=== PATIENT | female | born 1960 | race Caucasian/White ===

== ENCOUNTER 2021-09-03 16:06 | Outpatient (CLI) | payer OTHER, SELFPAY ==
--- NOTE | ~2021-09-03 | CT_ITS ---
EXAMINATION: CT diagnostic chest wo con DATE: 09/03/2021 16:29 INDICATION: Hyponatremia TECHNIQUE: Computed tomography (CT) of the chest was performed without intravenous contrast. Addition al 3D reconstructions utilizing coronal maximum intensity projection (MIP) were performed. Automated exposure control and iterative reconstruction technique were employed. The dose-length product was 14 6.30 mGy-cm. COMPARISON: 01/24/2019 FINDINGS: Mild atelectasis in the lingula, right middle lobe and posterior segment of the right upper lobe. Clu ster of small calcified nodules in the perihilar right upper lobe along with calcified mediastinal an d right hilar lymph nodes consistent with old granulomatous disease. Pneumonia, pulmonary edema or ot her pulmonary infiltrates. No pleural effusion. Heart size is normal. Atherosclerotic coronary artery calcifications. Thoracic aorta is normal in caliber. No pathologically enlarged thoracic lymphadenop athy. Small sliding-type hiatal hernia. Chronic L1 burst fracture with L1 laminectomy for decompressi on and spanned by a posterior spinal fusion with bilateral vertical rods and pedicle screws at T12 an d L1. IMPRESSION: 1. No acute cardiopulmonary disease, suspicious pulmonary nodules or pathologically enlarged thoracic lymphadenopathy. 2. Small sliding-type hiatal hernia. Reviewed, dictated and finalized at location A. AL CYTOLOGIST IMPRESSION: 1. No acute cardiopulmonary disease, suspicious pulmonary nodules or pathologic ally enlarged thoracic lymphadenopathy. 2. Small sliding-type hiatal hernia.
== END 2021-09-03 16:07 | disposition home or self-care (01) ==
LOC: CHSIMG 16:09
PROVIDERS: PCP Internal Medicine; Visit Provider Internal Medicine Nephrology
DX: E87.1 Hypo-osmolality and hyponatremia (principal)
CPT/HCPCS: 71250

== ENCOUNTER 2022-10-06 12:36 | Outpatient (CLI) | payer OTHER, SELFPAY ==
--- NOTE | ~2022-10-06 | XR_ITS ---
Thoracic spine: Clinical Indication: Back pain AP and lateral views were performed. Minimal anterior wedging deformity of T12 noted. Vertebral alignment is unremarkable otherwise. The i ntervertebral disc spaces appear normal. Paravertebral soft tissues appear normal. Impression: Minimal anterior wedging deformity of T12. Reviewed, dictated and finalized at [facility]. RVISOR CONCRETE STONE FINISHING Impression: Minimal anterior wedging deformity of T12.
--- NOTE | ~2022-10-06 | US_ITS ---
EXAMINATION: US arterial ankle brachial ind DATE: 10/06/2022 13:51 INDICATION: Peripheral arterial occlusive disease TECHNIQUE: Segmental pressures and plethysmographic and Doppler waveforms of the brachial and lower e xtremity arteries were obtained. COMPARISON: None. FINDINGS: Right and left brachial artery pressures of 131 mm Hg and 148 mm Hg, respectively, are concordant (no rmal difference <= 30 mmHg). The right ankle-brachial index (NOY) is 0.57 (normal >= 0.9-1.0). The right great toe-brachial index (TBI) is 0.46 (normal >= 0.65). Arterial Doppler waveforms are biphasic with brisk systolic upstrokes at in the right common femoral, superficial femoral, popliteal and dorsalis pedis arteries. No evide nt flow in the right posterior cerebral artery which may be occluded. The left NOY is 0.53. The left TBI is 0.32. Arterial Doppler waveforms are biphasic with brisk systol ic upstrokes at both left common femoral, superficial femoral, popliteal and dorsalis pedis arteries. No evident flow in the left posterior cerebral artery which may be occluded. IMPRESSION: 1. Arterial occlusive disease to bilateral lower limbs with moderately decreased bilateral ABIs and o cclusion of the bilateral posterior tibial arteries. Reviewed, dictated and finalized at location B. HETIC FILAMENT SPINNER IMPRESSION: 1. Arterial occlusive disease to bilateral lower limbs with moderately decrease d bilateral ABIs and occlusion of the bilateral posterior tibial arteries.
--- NOTE | ~2022-10-06 | XR_ITS ---
Clinical Indication: Back pain PA and lateral views of the chest: Comparison: None Findings: The lungs are clear, without evidence of focal consolidation or pleural effusion. Cardiome diastinal silhouette is within normal limits. Compression fracture what is probably L1 noted, hesham webster posterior fixation hardware. Impression: Clear lungs. Compression fracture probably of L1, with surrounding posterior fixation hardware. Reviewed, dictated and finalized at location . EAR TEST TECHNICIAN Impression: Clear lungs. Compression fracture probably of L1, with surrounding posterior fixation donte aly
--- NOTE | ~2022-10-06 | XR_ITS ---
Lumbosacral Spine: AP and lateral views Clinical History: Pain Findings: Moderate compression fracture of L2 present. Posterior fixation hardware extends from L1 to L3. 5 mm retrolisthesis of L3 over L4 noted. Facet joint degenerative changes are present throughout the lumbar spine. The sacroiliac joints are normally outlined. Impression: Moderate compression fracture of L2, surrounding posterior fixation hardware. 5 mm retrolisthesis of L3 over L4. Facet joint degenerative changes, as detailed above. Reviewed, dictated and finalized at location M. ET DEVELOPMENT ANALYST Impression: Moderate compression fracture of L2, surrounding posterior fixation hardware. 5 mm retrolisthesis of L3 over L4. Facet joint degenerative changes, as detailed above.
== END 2022-10-06 12:37 | disposition home or self-care (01) ==
LOC: CHSIMG 12:39
PROVIDERS: PCP Internal Medicine; Visit Provider Internal Medicine
DX: I73.9 Peripheral vascular disease, unspecified (principal); M54.50 Low back pain, unspecified; M48.54XA Collapsed vertebra, not elsewhere classified, thoracic region, initial encounter for fracture; M48.56XA Collapsed vertebra, not elsewhere classified, lumbar region, initial encounter for fracture; M43.16 Spondylolisthesis, lumbar region; I70.203 Unspecified atherosclerosis of native arteries of extremities, bilateral legs
CPT/HCPCS: 71046; 72072; 72100; 93922

== ENCOUNTER 2022-10-20 08:35 | Outpatient (CLI) | payer OTHER, SELFPAY ==
--- NOTE | ~2022-10-20 | CT_ITS ---
EXAMINATION: CTA abd aorta runoff DATE: 10/20/2022 10:06 INDICATION: Peripheral arterial disease. TECHNIQUE: Computed tomographic angiography (CTA) of the abdominal, pelvis, and both lower extremitie s was performed with 150 mL Omnipaque-350 intravenous contrast. Automated exposure control and iterat yessy reconstruction technique were employed. The dose-length product was 591.52 mGy-cm. Maximum intens ity projection 3D-reconstructions of the arteries were created by the technologist on a separate work station. COMPARISON: None. FINDINGS: ABDOMINAL AORTA AND ITS BRANCHES: There is no abdominal aortic aneurysm. There is no significant stenosis of abdominal aorta. There is no significant stenosis of celiac axis. There is moderate stenosis of superior mesenteric artery. The re is no significant stenosis of the renal arteries. There is moderate stenosis of origin of inferior mesenteric artery. PELVIC VASCULATURE: There is no significant stenosis of the common iliac arteries, external iliac arteries, or internal i liac arteries. RIGHT LOWER EXTREMITY VASCULATURE: There is no significant stenosis of right common femoral artery or profunda femoris. There is total o cclusion of right superficial femoral artery throughout. There is reconstitution of flow in above-kne e popliteal artery. There is no significant stenosis of tibioperoneal trunk, anterior tibial artery, or peroneal artery. There is total occlusion of distal posterior tibial artery. LEFT LOWER EXTREMITY VASCULATURE: There is no significant stenosis of common femoral artery or profunda femoral artery. There is total occlusion of superficial femoral artery throughout. There is reconstitution of flow in above-knee pop liteal artery. There is no significant stenosis of tibioperoneal trunk, peroneal artery, or anterior tibial artery. There is total occlusion of mid posterior tibial artery. ADDITIONAL FINDINGS: The visualized portions of the lung bases demonstrate mild atelectasis. No pleural effusion. The hear t size is normal. No pericardial effusion. There is a small sliding hiatal hernia. The liver, spleen, gallbladder, pancreas, adrenal glands, and kidneys are normal. There is diverticulosis of the colon without evidence of diverticulitis. There are no dilated loops of bowel. The appendix is normal. Ther e are no pathologically enlarged lymph nodes. There is no free intraperitoneal fluid. There is customer marketing intern al fixation of left first metatarsal and left first, third, and fourth proximal phalanges. There are changes of posterior fusion procedure from L1 to L3. There is a chronic burst fracture of L2. There i s chronic anterior wedging of T10 and T11 vertebral bodies. IMPRESSION: 1. Moderate stenosis of superior mesenteric artery and inferior mesenteric artery. No significant st enosis of celiac axis. 2. Total occlusion of right superficial femoral artery with reconstitution of flow in above knee popl iteal artery. 3. Total occlusion of distal right posterior tibial artery. Two-vessel runoff on the right. 4. Total occlusion of left superficial femoral artery with reconstitution of flow and above-knee popl iteal artery. 5. Total occlusion of mid left posterior tibial artery. Two-vessel runoff on the left. Reviewed, dictated and finalized at location A. CTOR ACUTE IMPRESSION: 1. Moderate stenosis of superior mesenteric artery and inferior mesenteric art samantha. No significant stenosis of celiac axis. 2. Total occlusion of right superficial femoral artery with reconstitution of f low in above knee popliteal artery. 3. Total occlusion of distal right posterior tibial artery. Two-vessel runoff o n the right. 4. Total occlusion of left superficial femoral artery with reconstitution of fl ow and above-knee poplitea
--- NOTE | ~2022-10-20 | CT_ITS ---
EXAMINATION:CT lung screening DATE: 10/20/2022 10:05 INDICATION: Tobacco dependence. Current smoker. TECHNIQUE: Computed tomography (CT) of the chest was performed without intravenous contrast. Automate d exposure control and iterative reconstruction technique were employed. The dose-length product (DLP ) was 57.62 mGy-cm. COMPARISON: Chest CT 09/03/2021 FINDINGS: Calcified right lung nodules and calcified right hilar and mediastinal lymph nodes are cons istent with old granulomatous disease. There is mild atelectasis bilaterally. No pleural effusion. Th e heart size is normal. There are coronary artery calcifications. No pericardial effusion. There is m ild chronic anterior wedging of multiple thoracic vertebral bodies. There are changes of posterior fu marylou procedure from T12 to the lumbar spine. There is chronic burst fracture of L1. IMPRESSION: 1. Lung-RADS category 2: Benign appearance or behavior. Continue annual screening with noncontrast lo w-dose chest CT in 12 months. Reviewed, dictated and finalized at location A. TS OFFICER IMPRESSION: 1. Lung-RADS category 2: Benign appearance or behavior. Continue annual screeni ng with noncontrast low-dose chest CT in 12 months.
--- NOTE | ~2022-10-20 | CT_ITS ---
Noncontrast CT scan of the thoracic and lumbar spine CLINICAL HISTORY: Lower extremity numbness and weakness TECHNIQUE: Axial noncontrast imaging of the thoracic and lumbar spine was performed. Sagittal and cor onal reformatted images were constructed. Dose reduction technique was used on this scan by utilizing automated exposure control and iterative reconstruction technique. FINDINGS: Thoracic spine findings: There is no fracture or subluxation of the thoracic spine. Thoracic vertebra l bodies maintain normal height and alignment. There is minimal degenerative disc change at T11-T12 a nd T12-L1. There is mild reactive sclerotic change at the inferior aspect of T12 due to underlying de generative disc disease. No definite disc bulge or herniation seen at any thoracic level. No definite spinal canal stenosis or cord compression in the thoracic spine. There is probable right neural foraminal narrowing at T9-T10 , mild bony spurring in this region. Paravertebral soft tissues are unremarkable. Lumbar spine findings: There is a chronic, moderate compression fracture deformity at L2, with surrou nding posterior fixation hardware extending from L1 to L3, with bilateral rods and transpedicular scr ews present. There is mild retropulsion of the superior, posterior corner of the L2 vertebral body. G rade 1 retrolisthesis of L3 over L4 noted, approximately 5 mm. At L1-L2 and L2-L3, there is no definite disc bulge or herniation. No definite spinal canal stenosis. Probable mild to moderate left neural foraminal narrowing at L2-L3. At L3-L4, there is probable disc bulge and ligamentum flavum hypertrophy. Suspected mild central santiago l stenosis/thecal sac compression. There is probable mild to moderate bilateral neural foraminal narr owing. At L4-L5, there is mild disc bulge with facet arthropathy, which result in probable mild thecal sac c ompression. Probable moderate right neural foraminal narrowing. Left neural foramen may be minimally narrowed. At L5-S1, there is minimal disc bulge. No spinal canal stenosis. There is probable mild right neural foraminal narrowing. Left neural foramen preserved. Paravertebral soft tissues are unremarkable. IMPRESSION: Chronic L2 compression fracture with surrounding posterior fixation hardware from L1 to L3. 5 mm retrolisthesis of L3 over L4. Mild degenerative spondylosis in the lumbar spine, as detailed above. Probable mild thecal sac compre ssion at L4-L5. Scattered areas of neural foraminal narrowing in the lumbar spine, as detailed above. Suspected right neural foraminal narrowing at T9-T10. Reviewed, dictated and finalized at location M. TENANT SHIFT SUPERVISOR IMPRESSION: Chronic L2 compression fracture with surrounding posterior fixation hardware fr om L1 to L3. 5 mm retrolisthesis of L3 over L4. Mild degenerative spondylosis in the lumbar spine, as detailed above. Probable mild thecal sac compression at L4-L5. Scattered areas of neural foraminal narro wing in the lumbar spine, as detailed above. Suspected right neural foraminal narrowing at T9-T10.
[2022-10-20 09:07] LABS: Estimated Glomerular Filt Rate > 60
== END 2022-10-20 08:36 | disposition home or self-care (01) ==
LOC: CHSIMG 08:37
PROVIDERS: PCP Internal Medicine; Visit Provider Internal Medicine
DX: I73.9 Peripheral vascular disease, unspecified (principal); R53.1 Weakness; R20.0 Anesthesia of skin; I77.1 Stricture of artery; Z12.2 Encounter for screening for malignant neoplasm of respiratory organs; Z87.891 Personal history of nicotine dependence; M48.56XA Collapsed vertebra, not elsewhere classified, lumbar region, initial encounter for fracture; M43.16 Spondylolisthesis, lumbar region
CPT/HCPCS: 71271; 72128; 72131; 75635; Q9967

== ENCOUNTER 2023-05-01 08:22 | Day surgery (SDC) | payer OTHER, SELFPAY ==
[2023-03-17 10:24] VITALS: BMI 23.6
[2023-04-14 13:44] VITALS: BMI 23.8
--- NOTE | 2023-04-28 14:59 | WPDANESEPPF ---
Anes - Initial Pre Proc Eval Procedure: Operation Date: 05/01/23 10:30 Proposed Procedures p Screening Colonoscopy - Prashanth Delgadillo MD Date/Time: 04/28/23 14:59 Surgeon: Prashanth Delgadillo MD Pre Op Diagnosis: Neoplasm Screening Patient Data Age: 62 Gender: F Height: 1.56 m Weight: 58 kg Allergies Allergy/AdvReac Type Severity Reaction Status Date / Time amoxicillin Allergy Intermediate Rash Verified 05/01/23 09:21 bupropion Allergy Intermediate Hives Verified 05/01/23 09:21 Home Medications Medication Instructions Recorded Confirmed Type sodium,potassium,mag sulfates 17.5 See Rx Instructions PO .COMPLEX 03/17/23 05/01/23 Rx gram-3.13 gram-1.6 gram oral soln #354 mL (Suprep Bowel Prep Kit) amlodipine 5 mg tablet 10 mg PO DAILY 04/14/23 05/01/23 History aspirin 81 mg tablet,delayed 81 mg PO DAILY 04/14/23 05/01/23 History release (Adult Low Dose Aspirin) atorvastatin 10 mg tablet 10 mg PO DAILY 04/14/23 05/01/23 History oneil pod extract-green tea extract 400 tablet PO DAILY 04/14/23 05/01/23 History 400 mg-400 mg tablet biotin 10,000 mcg chewable tablet 10,000 mcg PO DAILY 04/14/23 05/01/23 History (Hair, Skin and Nails (biotin)) buspirone 15 mg tablet 15 mg PO DAILY 04/14/23 05/01/23 History cilostazol 50 mg tablet 50 mg PO DAILY 04/14/23 04/14/23 History lisinopril 40 mg tablet 40 mg PO DAILY 04/14/23 05/01/23 History mirtazapine 15 mg tablet 15 mg PO DAILY 04/14/23 05/01/23 History multivitamin with minerals-folic 1 tablet PO DAILY 04/14/23 05/01/23 History acid 0.4 mg tablet omega 2-bcx-hlr-fish oil 1,200 mg 1 cap PO DAILY 04/14/23 05/01/23 History (144 mg-216 mg) capsule (Fish Oil) Patient hx anesthesia problems: none Family hx anesthesia problems: none Results Review: All pre-operative results and documents have been reviewed as part of the pre-operative evaluation. [facility] Past Medical History Medical History Anxiety Depression ETOH abuse HTN (hypertension) Hyperlipidemia Lupus (systemic lupus erythematosus) Osteoarthritis PVD (peripheral vascular disease) Smoker Social History Social History Smoking packs per day: 0.5 Smoking cigarettes per day: 10.0 Years smoked: 30 Smoking pack-years: 15.00 Smoking status: Current every day smoker Tobacco type: cigarettes Alcohol intake: current Drinks per week: 28 Alcohol use details: 4 BEERS EVERY EVENING Substance use: never Substance use type: does not use Living arrangements: with family Spiritual care concerns: No Anes - Eval Final PreProcedure Day of Procedure 04/28/23 14:59 Patient weight: normal Heart: regular rate and rhythm Lungs: clear to auscultation and normal air movement Airway: Mallampati scale class II Neurological: alert and oriented Last oral intake: >/= 8 hours ASA classification: III Emergent: no Anesthetic plan: proceed Anesthesia type and monitoring: general GIVS Results Review: All pre-operative results and documents have been reviewed as part of the pre-operative evaluation. Informed Consent: The patient's anesthetic plan and its attendant risks and benefits were discussed with the patient/family/POA. Questions were solicited and answers provided to the satisfaction of the patient/family/POA.
[2023-05-01 09:23] VITALS: BP 120/73; PULSE 100; RESP 14; TEMP 36.4; O2SAT 100
[2023-05-01] MEDS: LACTATED RINGERS 1,000 ML 150 ML IV CONT (09:36)
--- NOTE | 2023-05-01 09:42 | PM.HPGS ---
History of Present Illness History of Present Illness Consent: Risks, benefits, and alternatives have been discussed and questions answered. Patient agrees to proceed with procedure. Chief complaint: Neoplasm Screening Narrative: Sarah Almanzar is a 62 year old female Presents for screening colonoscopy. Patient's current weight appetite and bowel movements are normal. Patient denies abdominal pain. Patient reports bowel habits are good. She presents today for neoplasia screening. Review of Systems Review of Systems: Review of systems noncontributory. PMFSH Past Medical History Medical History Anxiety Depression ETOH abuse HTN (hypertension) Hyperlipidemia Lupus (systemic lupus erythematosus) Osteoarthritis PVD (peripheral vascular disease) Smoker Social History Social History Smoking packs per day: 0.5 Smoking cigarettes per day: 10.0 Years smoked: 30 Smoking pack-years: 15.00 Smoking status: Current every day smoker Tobacco type: cigarettes Alcohol intake: current Drinks per week: 28 Alcohol use details: 4 BEERS EVERY EVENING Substance use: never Substance use type: does not use Living arrangements: with family Spiritual care concerns: No Meds Home Medications and Allergies Home Medications Medication Instructions Recorded Confirmed Type sodium,potassium,mag sulfates 17.5 See Rx Instructions PO .COMPLEX 03/17/23 05/01/23 Rx gram-3.13 gram-1.6 gram oral soln #354 mL (Suprep Bowel Prep Kit) amlodipine 5 mg tablet 10 mg PO DAILY 04/14/23 05/01/23 History aspirin 81 mg tablet,delayed 81 mg PO DAILY 04/14/23 05/01/23 History release (Adult Low Dose Aspirin) atorvastatin 10 mg tablet 10 mg PO DAILY 04/14/23 05/01/23 History oneil pod extract-green tea extract 400 tablet PO DAILY 04/14/23 05/01/23 History 400 mg-400 mg tablet biotin 10,000 mcg chewable tablet 10,000 mcg PO DAILY 04/14/23 05/01/23 History (Hair, Skin and Nails (biotin)) buspirone 15 mg tablet 15 mg PO DAILY 04/14/23 05/01/23 History cilostazol 50 mg tablet 50 mg PO DAILY 04/14/23 04/14/23 History lisinopril 40 mg tablet 40 mg PO DAILY 04/14/23 05/01/23 History mirtazapine 15 mg tablet 15 mg PO DAILY 04/14/23 05/01/23 History multivitamin with minerals-folic 1 tablet PO DAILY 04/14/23 05/01/23 History acid 0.4 mg tablet omega 3-oho-vvg-fish oil 1,200 mg 1 cap PO DAILY 04/14/23 05/01/23 History (144 mg-216 mg) capsule (Fish Oil) Allergies Allergy/AdvReac Type Severity Reaction Status Date / Time amoxicillin Allergy Intermediate Rash Verified 05/01/23 09:21 bupropion Allergy Intermediate Hives Verified 05/01/23 09:21 Vital Signs Vital Signs - 24 hr 05/01/23 09:23 Temperature 97.5 F L Pulse Rate 100 Respiratory Rate 14 Blood Pressure 120/73 Pulse Oximetry 100 Oxygen Delivery Room Air Exam Narrative: Physical exam reveals patient to be alert. Vital signs stable. HEENT exam is unremarkable. Patient is anicteric. Lungs are clear to auscultation and percussion. Heart is without murmur or extra sounds. Abdomen bowel sounds are present soft nontender with no organomegaly. Digital external rectal exam is normal. Assessment and Plan Assessment and plan (1) Encounter for screening colonoscopy: Code(s): Z12.11 - Encounter for screening for malignant neoplasm of colon Status: Acute Assessment and Plan: Patient presents today for screening colonoscopy. She appears to be at average risk for colon polyps. Further recommendations will be given after endoscopy.
[2023-05-01 11:00] VITALS: BP 88/66; PULSE 77; RESP 16; O2SAT 100
[2023-05-01 11:09] VITALS: BP 106/61; PULSE 72; RESP 16; O2SAT 100
[2023-05-01 11:22] VITALS: BP 122/69; PULSE 72; RESP 16; O2SAT 100
--- NOTE | 2023-05-01 14:21 | WPDANESPN ---
Anes - Prog Note Post-Op Date/Time: 05/01/23 14:21 Cardiovascular status: normal Respiratory status: normal Airway patency: baseline Mental status: baseline Post-Op hydration status: normal Vital Signs: Last Vital Signs Temp 36.4 C L 05/01/23 09:23 Pulse 72 05/01/23 11:22 Resp 16 05/01/23 11:22 BP 122/69 05/01/23 11:22 Pulse Ox 100 05/01/23 11:22 O2 Del Method Room Air 05/01/23 11:22 Pain Score (VAS): 0 I/O: Intake & Output 04/30/23 05/01/23 05/01/23 23:59 07:59 15:59 Intake Total 700 Balance 700 Post-procedural complaints: none Patient Feedback: Patient satisfied with anesthetic care.
== END 2023-05-01 10:35 | disposition home or self-care (01) ==
PROVIDERS: PCP Internal Medicine; Visit Provider Internal Medicine Gastroenterology
PROC: 0DJD8ZZ Inspection of Lower Intestinal Tract, Via Natural or Artificial Opening Endoscopic (ICD-10-PCS; CPT 45378; principal; 2023-05-01 10:30)
DX: Z12.11 Encounter for screening for malignant neoplasm of colon (principal)
CPT/HCPCS: 45378

== ENCOUNTER 2023-05-24 11:39 | Outpatient (CLI) | payer OTHER, SELFPAY ==
--- NOTE | ~2023-05-24 | MM_ITS ---
EXAMINATION: MM screening [facility] BI w delvis HISTORY: Screening mammogram TECHNIQUE: Craniocaudal and mediolateral oblique 3-D tomosynthesis images were obtained and synthetic 2-D images were generated. CAD analysis was submitted and interpreted. COMPARISON: 07/26/2019, 07/19/2019, 07/18/2018 BREAST PARENCHYMAL COMPOSITION: There are scattered areas of fibroglandular density. FINDINGS: Scattered benign-appearing calcifications are present. No suspicious mass, calcification, o r architectural distortion are identified in either breast to suggest malignancy. There has been no s uspicious interval change. IMPRESSION: 1. No mammographic evidence of malignancy. 2. Recommend routine screening mammography in one year. BI-RADS Category 2: Benign finding(s). Reviewed, dictated and finalized at location A.
== END 2023-05-24 11:40 | disposition home or self-care (01) ==
LOC: CHSIMG 11:41
PROVIDERS: PCP Internal Medicine; Visit Provider Internal Medicine
DX: Z12.31 Encounter for screening mammogram for malignant neoplasm of breast (principal)
CPT/HCPCS: 77063; 77067

== ENCOUNTER 2024-05-01 12:53 | Outpatient (CLI) | payer OTHER, SELFPAY ==
--- NOTE | ~2024-05-01 | CT_ITS ---
CT Scan of the Chest without Contrast: Clinical Indication: Lung cancer screening, nicotine dependence Technique: Contiguous sections were acquired throughout the chest without intravenous contrast. Dose reduction technique was used on this scan by utilizing automated exposure control and iterative recon struction technique. The dose-length product (DLP) was 55.90 mGy-cm. COMPARISON: 10/20/2022 Findings: There is no evidence of any significant mediastinal, hilar or axillary lymphadenopathy. Small calcifi ed mediastinal and right hilar lymph nodes are present. Coronary artery calcifications are present. There is no evidence of pleural or pericardial effusion. Stable focal posterior pleural scarring. Calcified upper lobe granulomas noted. Images through the upper abdomen reveal no abnormalities. Stable compression deformity of L2. Stable minimal compression deformity of T12. Impression: Lung RADS 2: Benign appearance. 12 month follow-up screening CT advised. Reviewed, dictated and finalized at [facility]. Impression: Lung RADS 2: Benign appearance. 12 month follow-up screening CT advised.
== END 2024-05-01 12:54 | disposition home or self-care (01) ==
LOC: CHSIMG 12:54
PROVIDERS: PCP Internal Medicine; Visit Provider Internal Medicine
DX: Z12.2 Encounter for screening for malignant neoplasm of respiratory organs (principal); Z87.891 Personal history of nicotine dependence
CPT/HCPCS: 71271

== ENCOUNTER 2024-05-27 11:58 | Outpatient (CLI) | payer OTHER, SELFPAY ==
--- NOTE | ~2024-05-27 | DEXA_ITS ---
Bone Density Report Name: CARISSA GARCIA Age: 63 Sex: Female Ethnicity: White Date of : 1960 Indication: postmenopausal; screening for osteoporosis; height loss; prior fracture; Referring Provider: Diego Polk Study: Bone densitometry was performed. Exam Date: May 27, 2024 Accession number: [id number] Bone Density: Region BMD T-score Z-score Classification Femoral Neck (Left) 0.741 -1.0 0.5 Normal Total Hip (Left) 0.800 -1.2 0.0 Osteopenia Femoral Neck (Right) 0.723 -1.1 0.3 Osteopenia Total Hip (Right) 0.783 -1.3 -0.1 Osteopenia Femoral Neck Mean 0.732 -1.1 0.4 Osteopenia Total Hip Mean 0.791 -1.2 -0.1 Osteopenia World Health Organization criteria for BMD impression classify patients as: Normal (T-score at or above -1.0), Osteopenia (T-score between -1.0 and -2.5), or Osteoporosis (T-score at or below -2.5). 10-year Fracture Risk: FRAX not reported because: Prior hip or vertebral fracture Clinical Information Provided by Patient: Have had a previous hip or vertebral fracture Has had a low trauma fracture Smokes Has 3 or more alcoholic drinks per day Patient maximum height was 63.0 Menopause Age: 48 Drinks caffeinated beverages Onset of menses at age 11 Number of children 3 Impression: The patient has low bone mass, based on the Right Total Hip T-score. The patient has risk factors, including: smoking, excessive alcohol use, previous fracture. Discussion: INCREASED RISK OF FRACTURE DUE TO HISTORY OF FRACTURE. The patient's previous fracture puts the patient at high risk of a future fracture. In untreated patients, the risk of osteoporotic fracture increases approximately two-fold for each 1.0 SD decrease in T-score. Low bone density is not the only risk factor for fracture; also consider factors such as patient's age, frailty or poor health, risk of falling, risk of injury, previous osteoporotic fracture, family history of osteoporosis, cigarette smoking, low body weight, etc. Not everyone with a low trauma fracture has osteoporosis; osteomalacia and other metabolic bone disorders should also be considered. Patients who have osteoporosis should be evaluated for specific diseases and conditions (secondary causes) that may cause or contribute to bone loss and fracture risk. National Osteoporosis Foundation (NOF) recommends pharmacologic intervention for patients with a prior hip or vertebral fracture regardless of BMD T-score. The patient should follow a healthful lifestyle (good nutrition with adequate calcium and vitamin D, and appropriate weight-bearing exercise). Follow-Up: Consider a repeat BMD and Vertebral Fracture Assessment (VFA) exam in 2 years or sooner if medically necessary, to reassess this patient's status. Reported by: Dr. Tono Jeffrey on 05/27/2024 12:51:00 PM.
--- NOTE | ~2024-05-27 | MM_ITS ---
EXAMINATION: MM screening anais BI w delvis HISTORY: Screening TECHNIQUE: Craniocaudal and mediolateral oblique 3-D tomosynthesis images were obtained and synthetic 2-D images were generated. CAD analysis was submitted and interpreted. COMPARISON: Comparison to multiple prior studies sequentially, with oldest reviewed study dated 07/16. BREAST PARENCHYMAL COMPOSITION: Not dense: There are scattered areas of fibroglandular density. FINDINGS: There is no evidence of suspicious mass, calcification, or architectural distortion to sugg est malignancy in either breast. There has been no suspicious interval change. IMPRESSION: 1. No mammographic evidence of malignancy. 2. Recommend routine screening mammography in one year. BI-RADS Category 2: Benign finding(s). Reviewed, dictated and finalized at location B.
== END 2024-05-27 11:59 | disposition home or self-care (01) ==
LOC: CHSIMG 12:01
PROVIDERS: PCP Internal Medicine; Visit Provider Internal Medicine
DX: Z12.31 Encounter for screening mammogram for malignant neoplasm of breast (principal); Z78.0 Asymptomatic menopausal state; M85.89 Other specified disorders of bone density and structure, multiple sites
CPT/HCPCS: 77063; 77067; 77080

== ENCOUNTER 2025-08-12 14:15 | Outpatient (CLI) | payer OTHER, SELFPAY ==
--- NOTE | ~2025-08-12 | MM_ITS ---
EXAMINATION: MM screening [facility] BI w delvis HISTORY: Screening TECHNIQUE: Craniocaudal and mediolateral oblique 3-D tomosynthesis images were obtained and synthetic 2-D images were generated. CAD analysis was submitted and interpreted. COMPARISON: Comparison to multiple prior studies sequentially, with oldest reviewed study dated 07/26/2019. BREAST PARENCHYMAL COMPOSITION: Not dense: There are scattered areas of fibroglandular density. FINDINGS: There is no evidence of suspicious mass, calcification, or architectural distortion to suggest malignancy in either breast. There has been no suspicious interval change. IMPRESSION: 1. No mammographic evidence of malignancy. 2. Recommend routine screening mammography in one year. BI-RADS Category 1: Negative Reviewed, dictated and finalized at location B.
--- OUTSIDE RECORDS SUMMARY | 2025-08-12 16:35 | XMS_ITS | Clinical Summary ---
Author Organization [facility] Facility Address [address] [address] Care Team Providers Care Computer Network Engineer Name Role Phone Diego Polk MD Primary Care Provider [phone] Allergies Active Allergy Reactions Criticality Noted Date Comments Bupropion 04/26/2021 Penicillins 04/26/2021 Medications * This document contains information received from the source organization and may not represent a complete record from that organization. Multiple Vitamin (multivitamin) tablet Take 1 tablet by mouth 1 (one) time each day Active omega-3 (FISH OIL) 1200 MG capsule Take 360 mg by mouth 1 (one) time each day Active doxepin (SINEquan) 10 MG capsule Take 10 mg by mouth every night Active citalopram (CeleXA) 20 MG tablet Take 20 mg by mouth 1 (one) time each day Active lisinopril 40 MG tablet Take 40 mg by mouth 1 (one) time each day Active amLODIPine-ator vastatin (CADUET) 5-10 MG per tablet Take 2 tablets by mouth 1 (one) time each day Active Green Tea, Vania sinensis, (GREEN TEA EXTRACT PO) Take 315 mg by mouth daily Active Active Problems No known active problems Family History Medical History Relation Comments HIV Brother Lymphoma Brother Cancer Father's Sister Cancer Mother No Known Problems Sister Relation Status Comments Brother Alive Father Father's Sister Alive Mother Sister Alive Social History Tobacco Use Types Packs/Day Years Used Date Smoking Tobacco: Every Day Cigarettes 0.5 30 Smokeless Tobacco: Never Alcohol Use Standard Drinks/Week Comments Yes 0 (1 standard drink = 0.6 oz pur e alcohol) Comments Unknown Sex and Gender Information Value Date Recorded Sex Assigned at Not on file Legal Sex Female 12:16 PM EDT Gender Identity Not on file Sexual Orientation Not on file Last Filed Vital Signs Vital Sign Reading Time Taken Comments Blood Pressure 126/75 08/26/2021 11:39 AM COOK ROAST Pulse 87 08/26/2021 11:39 AM COOK ROAST Temperature 36.4 C (97.5 F) 08/26/2021 11:39 AM COOK ROAST Respiratory Rate - - Oxygen Saturation 99% 08/26/2021 11:39 AM COOK ROAST Inhaled Oxygen Concentration - - Weight 59.4 kg (131 lb) 08/26/2021 11:39 AM COOK ROAST Height 154.9 cm (5' 1) 08/26/2021 11:39 AM COOK ROAST Body Mass Index 24.75 08/26/2021 11:39 AM COOK ROAST Plan of Treatment Health Maintenance Due Date Last Done Comments Breast Cancer Screening 1960 Pneumococcal Vaccine: 50+ Ye ars (1 of 2 - PCV) 1979 Colorectal Cancer Screening: Annual FOBT 2009 Colorectal Cancer Screening: Colonoscopy 2009 Colorectal Cancer Screening: Sigmoidoscopy 2009 Influenza Vaccine (#1) 2025 Hepatitis B Vaccine Aged Out No longe r eligible based on patient's age to complete this topic Insurance ) Care Teams Computer Network Engineer Relationship Specialty Start Date End Date Diego Polk MD [address] [place] [address] PCP - General Internal Medicine 08/19/21
--- OUTSIDE RECORDS SUMMARY | 2025-08-12 16:35 | XMS_ITS | Clinical Summary ---
Author Organization [facility] Address [address] [place] [id number] Care Team Providers Care Photograph Retoucher Name Role Phone Diego Polk MD Primary Care Provider [phone] Allergies Active Allergy Reactions Criticality Noted Date Comments Amoxicillin Hives Medium 08/19/2019 Bupropion Hives Medium 08/19/2019 Penicillins Unknown 10/11/2023 Medications doxepin (SINEquan) 10 mg capsule Active citalopram (CeleXA) 20 mg tablet Active lisinopril (PRINIVIL,ZESTRIL ) 30 mg tablet lisinopril 30 mg tablet Active amLODIPine (NORVASC) 5 mg tablet Take 1 tablet (5 mg total) by mouth daily Active fish oil-dha-epa 1,200-144-216 mg capsule Take by mouth Active zmnoeqwq-aaj-renm ous gluconate (CENTRUM) 0.6 mg iron/mL liquid Activ e calcium carbonate-vitamin D3 600 mg(1,500mg) -500 unit capsule Take by mouth Act yessy atorvastatin (LIPITOR) 10 mg tablet Take 1 tablet (10 mg total) by mouth daily Active cilostazoL (PLETAL) 50 mg tabletIndications :Intermittent Claudication Take 1 tablet (50 mg total) by mouth 2 (two) times a day Active aspirin 81 mg enteric coated tablet Take 80 mg by mouth daily Active busPIRone (BUSPAR) 15 mg tabletIndications :Generalized Anxiety Disorder Take 1 tablet (15 mg total) by mouth 3 (three) times a day Active green tea leaf extract capsule Take 315 mg by mouth daily Active sodium chloride 1,000 mg tablet 3 Active mirtazapine (REMERON) 15 mg tablet Take 1 tablet (15 mg total) by mouth nightly at bedtime. 3 Active amlodipine-atorva statin (CADUET) 5-10 mg per tablet Take 2 tablets by mouth daily Active Active Problems Problem Noted Date Diagnosed Date Peripheral arterial disease 07/10/2024 Abnormal findings on diagnostic imaging of breas t 08/19/2019 Surgical History Surgery Date Site/Laterality Comments SPINAL FUSION 10/16/2008 - 10/15/2009 CARPAL TUNNEL RELEASE 10/16/2007 - 10/15/2008 TUBAL LIGATION 10/16/1986 - 10/15/1987 Medical History Medical History Date Comments Hypertension Depression Discoid lupus Arthritis Family History Medical History Relation Name Comments Non-Hodgkin's Lymphoma Brother Breast cancer Father's Sister Pancreatic cancer Mother Relation Name Status Comments Brother Father's Sister Mother Social History Tobacco Use Types Packs/Day Years Used Date Smoking Tobacco: Every Day Cigarettes 0.4 30 Tobacco Cessation:Ready to Q uit: Not Asked; Counseling Given: Not Answered Personal Safety Answer Date Recorded Getting School Help Needed Not on file 10/07 Comments No Sex and Gender Information Value Date Recorded Sex Assigned at Not on file Legal Sex Female 2:59 AM FITTER PLACER Gender Identity Female 10/07/2023 11:12 AM FITTER PLACER Sexual Orientation Straight 10/07/2023 11 :12 AM FITTER PLACER Obstetrics History Last Filed Vital Signs Vital Sign Reading Time Taken Comments Blood Pressure 120/72 07/08/2024 1:51 PM CDT Pulse 85 07/08/2024 1:51 PM CDT Temperature - - Respiratory Rate - - Oxygen Saturation 100% 07/08/2024 1:51 PM CDT Inhaled Oxygen Concentration - - Weight 56.7 kg (125 lb) 07/08/2024 1:51 PM CDT Height 154.9 cm (5' 1) 07/08/2024 1:51 PM CDT Body Mass Index 23.62 07/08/2024 1:51 PM CDT Plan of Treatment Health Maintenance Due Date Last Done Comments Cervical Cancer Screening 1960 Colon Cancer Screening-Colonoscopy 1960 Depression Screening 1960 Fall Risk Assessment 1960 Hepatitis C Screening 1960 Osteoporosis Screening-Bone Density Scan 1960 Hepatitis B Screening 1978 DTaP/Tdap/Td Vaccine (1 - Tdap) 01/29/1997 7 Zoster Vaccine (2 of 2) 12/30/2019 11/04/2019 Breast Cancer Screening-Mammogram 01/25/2022 021 Well Visit 65+ 2025 Covid-19 Vaccine (5 - 2024-2 6 season) 2025 08/24/2022, 08/18/2021, 11/28/2020, Additional history exists Influenza Vaccine (#1) 2025 2, 09/30/2021, 07/31/2020, Additional history exists Pneumococcal vaccine 65+ (3 of 3 - PCV20 or PCV21) 04/22/2027 04/22/2022, 05/04/2018 Procedures Procedure Name Priority Date/Time Associated Diagnosis Comments SCREENING MAMMOGRAM BILATERAL W MARIUSZ Schedule Routine, Read Routine (OP Routine) 01/25/2021 8:38 AM CDT Encounter for screening mammogram for malignant neoplasm of breast from Last 3 Months or Most Recently Relevant to Health Maintenance Results * Screening Mammogram Bilateral W Mariusz (01/25/2021 8:38 AM CDT) Anatomical Region Laterality Modality Breast Bilateral Mammography Narrative 01/26/2021 11:37 AM CDT Mammogram Technique: Bilateral Digital Breast Tomosynthesis, Bilateral C-view 2D Screening mammogram. Views obtained: bilateral craniocaudal and bilateral mediolateral oblique. Computer Aided Detection was performed. Mammogram Findings: The present examination has been compared to a prior imaging study performed at [facility] on 08/19/2019. The breasts are heterogeneously dense, which may obscure small masses. There is no suspicious abnormality in either breast. There are no significant changes from the prior study. Impression: Finding is benign. Annual screening mammography is recommended. OVERALL FINAL ASSESSMENT: BI-RADS CATEGORY 2: Benign. Procedure Note Etta Kramer MD - 01/26/2021 Mammogram Technique: Bilateral Digital Breast Tomosynthesis, Bilateral C-view 2D Screening mammogram. Views obtained: bilateral craniocaudal and bilateral mediolateral oblique. Computer Aided Detection was performed. Mammogram Findings: The present examination has been compared to a prior imaging study performed at [facility] on 08/19/2019. The breasts are heterogeneously dense, which may obscure small masses. There is no suspicious abnormality in either breast. There are no significant changes from the prior study. Impression: Finding is benign. Annual screening mammography is recommended. OVERALL FINAL ASSESSMENT: BI-RADS CATEGORY 2: Benign. us Self Screening Mammogram IMG MAMMO PROCEDURES Fi nal Result from Last 3 Months or Most Recently Relevant to Health Maintenance Insurance CHOICE PLUS CHOICE PLUS Care Teams Photograph Retoucher Relationship Specialty Start Date End Date Diego Polk MD [address] [place], [place] [id number] PCP - General Internal Medicine 07/29/19
--- OUTSIDE RECORDS SUMMARY | 2025-08-12 16:35 | XMS_ITS | Clinical Summary ---
Author Organization [facility] Address [address] [place] [address] Phone Care Team Providers Care Continuous Miner Operator Helper Name Role Phone Unavailable Primary Care Provider Unavailabl e Social History Tobacco Use Types Packs/Day Years Used Date Smoking Tobacco: Never Assessed Comments Unknown Sex and Gender Information Value Date Recorded Sex Assigned at Not on file Legal Sex Female 3:00 PM BRANCH LENDING MANAGER Gender Identity Not on file Sexual Orientation Not on file Plan of Treatment Health Maintenance Due Date Last Done Comments Hepatitis C Virus (HCV) Screening 1960 TdaP Immunization 1960 Pap Smear 1981 Cervical Cancer Screening (CCS) 1990 HPV/Cotest 1990 Cologuard 2005 Colonoscopy 2005 Colorectal Cancer Screening 2005 Immunochemical Fecal Occult Blood 2005 Pneumococcal Immunization (5 0+ years) (1 of 1 - PCV) 2010 Zoster Immunization (1 of 2) 2010 Influenza Immunization (#1) 2025 SARS-COV-2 Immunization ( - season) 2025 Respiratory Syncytial Virus (RSV) Immunization (Adult) (1 - 1-dose 75+ series) 2035 Hepatitis B Immunization Aged Out No longer eligible based on patient's age to complete this topic Human Papillomavirus (HPV) Immunization Aged Out No longer eligible b ased on patient's age to complete this topic Meningococcal Immunization (ACWY) Aged Out No longer eligible based on patient's age to complete this topic Rotavirus Immunization Aged Out No lo nger eligible based on patient's age to complete this topic
--- OUTSIDE RECORDS SUMMARY | 2025-08-12 16:35 | XMS_ITS | Encounter Summary ---
Author Organization [facility] Address [address] [place] [address] Care Team Providers Care Customer Complaint Clerk Name Role Phone Unavailable Primary Care Provider Unavailabl e Encounter Details Date Type Department Care Team (Late st Contact Info) Description 11/08/2018 Lab Requisition [facility] [address] [place] [address] Zhang Fuchs MD [address] [place] [address] Social History Tobacco Use Types Packs/Day Years Used Date Smoking Tobacco: Never Assessed Comments Unknown Sex and Gender Information Value Date Recorded Sex Assigned at Not on file Legal Sex Female 7:16 PM RESIN SHAVER Gender Identity Not on file Sexual Orientation Not on file documented as of this encounter Plan of Treatment Not on file documented as of this encounter Procedures Procedure Name Priority Date/Time Associated Diagnosis Comments DERMATOPATHOLOGY Routine 11/07/2018 12:0 0 AM RESIN SHAVER documented in this encounter Results * DERMATOPATHOLOGY (11/07/2018 12:00 AM RESIN SHAVER) Case Report Dermatopathology Report Case: [id number] Authorizing Provider: Zhang Fuchs MD Collected: 11/07/2018 12:00 AM Pathologist: Helena Long MD Received: 11/08/2018 02:25 PM Specimens: A) - Skin, left preauricular cheek B) - Skin, left ear C) - Skin, right lower cutaneous lip at chin crease 9 4:27 PM [facility] Final Diagnosis Specimen A. SKIN, left preauricular cheek: FOCAL VACUOLAR INTERFACE DERMATITIS WITH FOLLICULAR PLUGGING (L30.8) (see microscopic description and comment) Specimen B. SKIN, left ear: FOCAL VACUOLAR INTERFACE DERMATITIS WITH FOLLICULAR PLUGGING (L30.8) (see microscopic description and comment) Specimen C. SKIN, right lower cutaneous lip at chin crease: FOLLICULITIS, SUPPURATIVE (L73.8) FOCAL FOLLICULAR VACUOLAR INTERFACE DERMATITIS (L30.8) (see microscopic description and comment) 4:27 PM [facility] D[facility]MATOPATHOLOGY [facility]ORAT[facility] at [address] Clinical History A-B: R/O BCC, DLE. C: R/O hemangioma, cyst, acne papule. 4:27 PM [facility] Gross Description Specimen A: Received is one formalin filled container labeled with the patient's name and designated left preauricular cheek. The specimen consists of a punch biopsy measuring 1w7w0pm. Jar 0. Specimen B: Received is one formalin filled container labeled with the patient's name and designated left ear. The specimen consists of a shave biopsy measuring 6w5l5gb. Jar 0. Specimen C: Received is one formalin filled container labeled with the patient's name and designated right lower cutaneous lip at chin crease. The specimen consists of a punch biopsy measuring 9d0g6pf. Jar 0. 4:27 PM [facility] Microscopic Description Specimen A. SKIN, left preauricular cheek: There is overlying hyperorthokeratosis with focal follicular plugging. There are scattered dyskeratotic keratinocytes and vacuolar alteration along the basal cell layer. A superficial to deep perivascular and periadnexal lymphocytic infiltrate is observed in the portions of dermis sampled. There are rare eosinophils in the superficial dermis. Periodic acid-Gabe (PAS) stain fails to highlight fungal elements in the available sections, though does highlight a thickened basement membrane. A colloidal iron stain is equivocal for increased dermal mucin. There is no subcuticular adipose tissue present for evaluation. Additional deeper sections were obtained and reviewed. COMMENT: While the superficial nature of the specimen limits the histologic evaluation, these histologic findings are concerning for a connective tissue disorder, specifically lupus erythematosus. Other less likely diagnostic considerations include a lichenoid drug eruption. This case was also reviewed by Dr. Bronwyn Brower who agrees with the diagnosis. Specimen B. SKIN, left ear: There is focal epidermal acanthosis with a hyperkeratotic follicular plug. There is focal parakeratosis. There are scattered dyskeratotic keratinocytes and vacuolar alteration along the basal cell layer. A superficial to deep perivascular and periadnexal lymphocytic infiltrate is observed in the portions of dermis sampled. Additional deeper sections were obtained and reviewed. COMMENT: While the superficial nature of the specimen limits the histologic evaluation, these histologic findings are concerning for a connective tissue disorder, specifically lupus erythematosus. This case was also reviewed by Dr. Bronwyn Brower who agrees with the diagnosis. Specimen C. SKIN, right lower cutaneous lip at chin crease: Sections show rupture of the follicular infundibulum, with numerous neutrophils and scattered eosinophils. There is focal vacuolar alteration along the epithelium of an adjacent intact hair follicle with scattered dyskeratotic keratinocytes. Additional deeper sections were obtained and reviewed. COMMENT: The focal follicular interface dermatitis may suggest two concomitant processes, especially given the histologic findings in Specimens A and B. While the follicular dyskeratosis may be reactive and secondary to the suppurative inflammation, an underlying connective tissue disease cannot be definitively excluded. This case was also reviewed by Dr. Bronwyn Brower who agrees with the diagnosis. 9 4:27 PM [facility]OPATH[facility] Disclaimer An external and internal positive and negative controls are appropriate for the histochemical, immunohistochemical and immunofluorescence stain(s) in this case (if any), except where stated explicitly. The performance characteristics of the stain(s) cited in this report were developed and its performance characteristic determined by the Dermatopathology Laboratory at [facility], directed by Dr. Colton Henao. These tests need not be, and therefore are not, approved by the [place] Food and Drug Administration. The tests are used for clinical purposes. Billing Codes Specimen Charges Stain Charges 85588 15658 29705 1 1 1 [id number] 16553 1 1 9 4:27 PM [facility] Embedded Images 9 4:27 PM [facility] Pathology/Cytology TISSUE SPECIMEN FROM SKIN / Unknown 11/07/2018 11/08/2018 2:25 PM RESIN SHAVER Miscellaneous samples (specimen) TISSUE SPECIMEN FROM SKIN / Unknown 11/07/2018 11/08/2018 2:25 PM RESIN SHAVER Miscellaneous samples (specimen) TISSUE SPECIMEN FROM SKIN / Unknown 11/07/2018 11/08/2018 2:25 PM RESIN SHAVER Zhang Fuchs MD LAB - PATHOLOGY/CYTOLOGY ORD ERABLES Final Result DERMATOPATHOLOGY LABORATORY [facility] - Department of Dermatology [facility] [place] [address], [facility] [phone] documented in this encounter Visit Diagnoses Not on filedocumented in this encounter
--- OUTSIDE RECORDS SUMMARY | 2025-08-12 16:35 | XMS_ITS | Clinical Summary ---
Author Organization [facility] (acquired by [employer] in 2014) Address [address] [place] [address] Care Team Providers Care Tractor Crane Operator Name Role Phone Unavailable Primary Care Provider Unavailabl e Source Comments [facility] (acquired by [employer] in 2014),non-owned Affiliates and Associated Physician Practices is amultiple site organization consisting of ambulatory clinics and hospital sitesin [place], [place], [place] and [place]. This disclosure is being madepursuant to the Care Everywhere program and may not contain all information available regarding this patient. 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 Gender Identity Not on file Sexual Orientation Not on file Plan of Treatment Health Maintenance Due Date Last Done Comments BONE DENSITY TESTING 1960 COLOGUARD (AGES 45-75) - COL ON CA SCREENING 1960 COLON MONITORING 1960 COLONOSCOPY - COLON CA SCREENING 1960 CT COLONOGRAPHY - COLON CA SCREENING 1960 Colorectal Cancer Screening 1960 FIT - COLON CA SCREENING 1960 FLEX SIG - COLON CA SCREENING 1960 LIPID TESTING 1960 MAMMOGRAM 1960 HIV SCREENING 1975 HEPATITIS C SCREENING 06/06/1978 DTAP/TDAP/TD VACCINES (1 - Tdap) 1979 PAP with HPV 1990 PNEUMOCOCCAL VACCINE 50+ (1 of 1 - PCV) 2010 ZOSTER VACCINE (1 of 2) 2010 DEPRESSION SCREENING 10/16/2024 COVID-19 VACCINE (1 - 2023-2 5 season) 2025 INFLUENZA VACCINE (#1) 2025 Respiratory Syncytial Virus (RSV) Vaccine Pt: or over 60 yrs (1 - 1-dose 75+ series) 2035 HEPATITIS B VACCINE Aged Out No longe r eligible based on patient's age to complete this topic HIB VACCINE Aged Out No longer eligi ble based on patient's age to complete this topic HPV VACCINE Aged Out No longer eligi ble based on patient's age to complete this topic MENINGOCOCCAL (Group B) VACC INE SHARED DECISION-MAKING Aged Out No longer eligibl e based on patient's age to complete this topic MENINGOCOCCAL GROUPS A/C/Y/W VACCINE Aged Out No longer eligible b ased on patient's age to complete this topic Insurance [facility]
== END 2025-08-12 14:16 | disposition home or self-care (01) ==
LOC: CHSIMG 14:17
PROVIDERS: PCP Internal Medicine; Visit Provider Nurse Practitioner Family
DX: Z12.31 Encounter for screening mammogram for malignant neoplasm of breast (principal)
CPT/HCPCS: 77063; 77067